=== PATIENT | female | born 1975 | race Asian ===

== ENCOUNTER 2024-05-10 13:05 | Emergency (ER) | payer OTHER ==
[~2024-05-10] VITALS: Ht 154.9 cm; Wt 93.0 kg
[2024-05-10 13:12] VITALS: TEMP 98.4
[2024-05-10] MEDS ORDERED: [UNRECOGNIZED DRUG - OTHER] SQ (13:17)
[2024-05-10] MEDS: KETOROLAC TROMETHAMINE 30 MG/ML VIAL IM ONE (16:47)
[2024-05-10] MEDS: DEXAMETHASONE 4 MG TABLET PO ONE (16:48)
[2024-05-10] MEDS: METHOCARBAMOL 500 MG TABLET PO ONE (16:48)
[2024-05-10] MEDS: ACETAMINOPHEN 325 MG TABLET PO ONE (16:48)
[2024-05-10] MEDS: LIDOCAINE 5% TRANSDERMAL PATCH TD ONE (16:48)
[2024-05-10] MEDS ORDERED: METH-661 PO (17:27)
[2024-05-10 17:42] VITALS: BP 138/72; PULSE 68; RESP 18
== END 2024-05-10 17:43 | disposition home or self-care (01) ==
LOC: EMS 13:05
DX: M62.830 Muscle spasm of back (principal); E11.9 Type 2 diabetes mellitus without complications
CPT/HCPCS: 99284; 82962; 96372; J8540; J1885

== ENCOUNTER 2024-08-06 13:11 | Emergency (ER) | payer OTHER ==
[~2024-08-06] VITALS: Ht 157.5 cm; Wt 86.4 kg
[~2024-08-06 13:11] MED LIST: OXYC-38 PO
[2024-08-06 13:14] VITALS: TEMP 98.2
[2024-08-06 13:41] LABS: COVID AG,FIA SOURCE NASAL SWAB
[2024-08-06 14:05] LABS: RAPID GROUP A STREP NEGATIVE (NEGATIVE)
[2024-08-06 14:08] LABS: SARS-COV2 (COVID) ANTIGEN,FIA Negative (Negative)
[2024-08-06 14:09] LABS: INFLUENZA TYPE A NEGATIVE FOR TYPE A (NEGATIVE); INFLUENZA TYPE B POSITIVE FOR TYPE B (NEGATIVE)
[2024-08-06] MEDS ORDERED: OSEL75CA45 PO (14:36)
[2024-08-06] MEDS ORDERED: IBUP-1492 PO (14:44)
[2024-08-06 15:28] VITALS: BP 124/69; PULSE 68; RESP 18; O2SAT 99
[2024-08-06] MEDS: HYDROCODONE/ACETAMINOPHEN 5-325 MG TABLET PO ONE (15:32)
== END 2024-08-06 15:39 | disposition home or self-care (01) ==
LOC: EMS 13:11
DX: J11.1 Influenza due to unidentified influenza virus with other respiratory manifestations (principal); E11.9 Type 2 diabetes mellitus without complications; I10 Essential (primary) hypertension; Z20.822 Contact with and (suspected) exposure to COVID-19
CPT/HCPCS: 71046; 82962; 87430; 87804; 99284

== ENCOUNTER 2024-08-10 09:21 | Inpatient (IN) | payer OTHER ==
[~2024-08-10] VITALS: Ht 152.4 cm; Wt 80.0 kg
[~2024-08-10 09:21] MED LIST changes: +IBUP-1492 PO; +OSEL75CA45 PO; -OXYC-38 PO
[2024-08-10 10:38] LABS: BASOPHILS % (AUTO) 0.3 % (0.0-2.0); EOSINOPHILS % (AUTO) 1.4 % (1.0-6.0); HEMATOCRIT 33.6 % (36-46); HEMOGLOBIN 10.7 g/dL (12.0-16.0); LYMPHOCYTES # (AUTO) 1.1 K/uL (1.0-4.8); LYMPHOCYTES % (AUTO) 12.1 % (22.0-44.0); MEAN CORPUSCULAR HGB CONC 31.9 G/dL (31.0-37.0); MEAN CORPUSCULAR VOLUME 88 fL (80-100); MONOCYTES # (AUTO) 0.6 K/uL (0.1-1.0); MONOCYTES % (AUTO) 6.7 % (2.0-9.0); NEUTROPHILS # (AUTO) 7.3 K/uL (1.8-7.7); NEUTROPHILS % (AUTO) 79.5 % (40.0-70.0); PLATELET COUNT (AUTO) 340 K/uL (150-450); RED BLOOD CELL COUNT(AUTO) 3.84 MIL/uL (4.00-5.20); WHITE BLOOD COUNT (AUTO) 9.2 K/uL (4.5-11.0)
[2024-08-10 10:48] LABS: CALCIUM, TOTAL 8.6 mg/dL (8.8-10.5); CREATININE 0.98 mg/dL (0.60-1.30); POTASSIUM 3.4 mmol/L (3.5-5.1)
[2024-08-10 10:54] LABS: ALBUMIN 2.8 g/dL (3.4-5.0); BILIRUBIN,TOTAL 0.5 mg/dL (0.1-1.0); TOTAL PROTEIN, SERUM 7.4 g/dL (6.4-8.2)
[2024-08-10 10:56] LABS: TROPONIN I-HIGH SENSITIVITY 9 ng/L (<51)
[2024-08-10] MEDS ORDERED: IOHEXOL 350 MG/ML 100 ML VIAL ONE (11:41)
[2024-08-10] MEDS ORDERED: SODIUM CHLORIDE 0.9% 100 ML ONE (11:41)
[2024-08-10] MEDS: MAGNESIUM SULFATE 1 GM in DEXTROSE 5%-WATER 50 ML IV ONE (13:12)
[2024-08-10] MEDS: POTASSIUM CHLORIDE 20 MEQ ER TABLET PO ONE (13:12)
[2024-08-10 13:59] VITALS: PULSE 91; RESP 20; O2SAT 93
[2024-08-10] MEDS: ALBUTEROL SULFATE 2.5 MG/0.5 ML NEB SOLUTION NEB ONE (13:59)
[2024-08-10] MEDS ORDERED: MAGNESIUM HYDROXIDE SUSPENSION 30 ML UDCUP PO PRN (14:15)
[2024-08-10] MEDS ORDERED: BISACODYL 10 MG RECTAL RECTAL SUPPOSITORY PR PRN (14:15)
[2024-08-10] MEDS ORDERED: ONDANSETRON HCL 4 MG/2 ML VIAL IVP PRN (14:15)
[2024-08-10 14:17] VITALS: PULSE 86; RESP 20; O2SAT 100
[2024-08-10] MEDS: CefTRIAXone 1 GM/DEXTROSE 50 ML IV ONE (15:17)
[2024-08-10] MEDS: HEPARIN SODIUM,PORCINE 5,000 UNITS/ML VIAL SQ SCH (16:00)
[2024-08-10 16:02] LABS: COVID AG,FIA SOURCE NASAL SWAB
[2024-08-10 16:25] LABS: SARS-COV2 (COVID) ANTIGEN,FIA Negative (Negative)
[2024-08-10 16:26] LABS: INFLUENZA TYPE A NEGATIVE FOR TYPE A (NEGATIVE); INFLUENZA TYPE B NEGATIVE FOR TYPE B (NEGATIVE)
[2024-08-10] MEDS: MORPHINE SULFATE 2 MG/ML SYRINGE IVP PRN (17:12)
[2024-08-10] MEDS: OSELTAMIVIR PHOSPHATE 75 MG CAPSULE PO SCH (21:10)
[2024-08-10] MEDS: DOCUSATE SODIUM 100 MG CAPSULE PO SCH (21:10)
[2024-08-10] MEDS: MethylPREDNISolone SOD SUCC 40 MG/ML VIAL IVP SCH (21:16)
[2024-08-10 21:30] VITALS: BP 150/64; PULSE 102; RESP 18; TEMP 98.4; O2SAT 97
[2024-08-10] MEDS: ACETAMINOPHEN 325 MG TABLET PO PRN (22:03)
[2024-08-10] MEDS: ZOLPIDEM TARTRATE 5 MG TABLET PO PRN (22:03)
[2024-08-11 04:00] VITALS: BP 159/71; PULSE 97; RESP 18; TEMP 98.1; O2SAT 97
[2024-08-11] MEDS: HYDROCODONE/CHLORPHEN POLIS 10-8 MG/5 ML ORAL.SYG PO PRN (06:12)
[2024-08-11 07:29] LABS: BASOPHILS % (AUTO) 0.3 % (0.0-2.0); EOSINOPHILS % (AUTO) 0 % (1.0-6.0); HEMATOCRIT 37.7 % (36-46); HEMOGLOBIN 12.2 g/dL (12.0-16.0); LYMPHOCYTES % (AUTO) 14.1 % (22.0-44.0); MEAN CORPUSCULAR HEMOGLOBIN 28.8 pg (26.0-34.0); MEAN CORPUSCULAR HGB CONC 32.4 G/dL (31.0-37.0); MEAN CORPUSCULAR VOLUME 89 fL (80-100); MONOCYTES # (AUTO) 0.1 K/uL (0.1-1.0); MONOCYTES % (AUTO) 1.9 % (2.0-9.0); NEUTROPHILS # (AUTO) 6.1 K/uL (1.8-7.7); NEUTROPHILS % (AUTO) 83.7 % (40.0-70.0); PLATELET COUNT (AUTO) 404 K/uL (150-450); RED BLOOD CELL COUNT(AUTO) 4.24 MIL/uL (4.00-5.20); RED CELL DISTRIBUTION WIDTH 16.2 % (11.5-14.5); WHITE BLOOD COUNT (AUTO) 7.3 K/uL (4.5-11.0)
[2024-08-11 08:08] LABS: ANION GAP 12 mmol/L (8-16); CALCIUM, TOTAL 9.4 mg/dL (8.8-10.5); CARBON DIOXIDE 22 mmol/L (22-29); CHLORIDE 98 mmol/L (98-107); GLOMERULAR FILTR. RATE CALC > 60 mL/min (>60); GLUCOSE,RANDOM 229 mg/dL (70-110); POTASSIUM 4.9 mmol/L (3.5-5.1); SODIUM SERUM 132 mmol/L (136-145); UREA NITROGEN, BLOOD 15 mg/dL (7-18)
[2024-08-11 08:31] LABS: THYROID STIMULATING HORMONE 0.97 uIU/mL (0.36-3.74)
[2024-08-11 08:35] VITALS: BP 167/99; PULSE 80; RESP 20; TEMP 98; O2SAT 96
[2024-08-11] MEDS: PANTOPRAZOLE SODIUM 40 MG DR TABLET PO SCH (08:44)
[2024-08-11] MEDS: HYDROCODONE/ACETAMINOPHEN 5-325 MG TABLET PO PRN (08:45)
[2024-08-11 11:32] VITALS: BP 143/79; PULSE 74; RESP 18; TEMP 98.2; O2SAT 100
[2024-08-11] MEDS ORDERED: AZIT250T9 PO (12:22)
[2024-08-11] MEDS: INSULIN LISPRO 100 UNITS/ML SQ PRN (14:40)
[2024-08-11] MEDS ORDERED: DEXTROSE 50%-WATER 25 GM/50 ML SYRINGE IVP PRN (14:45)
[2024-08-11 15:12] VITALS: BP 138/74; PULSE 76; RESP 19; TEMP 98; O2SAT 100
[2024-08-11 20:01] LABS: GLUCOMETER DEV NAME(LOC) 5N.2C; GLUCOSE,POINT OF CARE 303 MG/DL (70-110)
== END 2024-08-11 15:15 | disposition home or self-care (01) | DRG 195 ==
LOC: EMS 09:21 → EDH 14:30 → 5N 20:16
PROVIDERS: ADMIT Internal Medicine; ATTEND Internal Medicine
DX: J10.08 Influenza due to other identified influenza virus with other specified pneumonia (principal); E87.6 Hypokalemia; D64.9 Anemia, unspecified; Z20.822 Contact with and (suspected) exposure to COVID-19; E11.9 Type 2 diabetes mellitus without complications; I10 Essential (primary) hypertension
CPT/HCPCS: 71045; 71275; 80048; 80053; 82962; 83735; 83880; 84443; 84484; 85025; 85379; 87804; 93005; 93306; 93970; 94640; 99285; J0696; J1644; J2270; J3475; J7050; J7060; 36415-L1; 36415-TC; J7613